=== PATIENT | female | born 1990 | race Caucasian/White ===

== ENCOUNTER 2019-02-02 12:19 | Emergency (ER) | payer BC, MEDICAID ==
[~2019-02-02] VITALS: Ht 165.1 cm; Wt 74.8 kg
[2019-02-02 13:23] VITALS: BP 106/74
== END 2019-02-02 14:12 | disposition home or self-care (01) ==
LOC: ER 12:19 → EDSEX 12:19 → ER 14:12
DX: S93.402A Sprain of unspecified ligament of left ankle, initial encounter (principal); W22.8XXA Striking against or struck by other objects, initial encounter; Y93.89 Activity, other specified; Y99.8 Other external cause status; Y92.89 Other specified places as the place of occurrence of the external cause
CPT/HCPCS: 29515; 73610